=== PATIENT | female | born 1990 | race Caucasian/White ===

== ENCOUNTER 2016-07-25 10:15 | Inpatient (IN) | payer BC ==
--- NOTE | ~2016-07-25 | HP ---
History And Physical [place] [id number] [facility] [place]. [address] NAME: MARITZA BROWN : [birth year] STATUS : ADM Anjel PAT#: [id number] AGE: 26 ADM/REG DATE : 07/25/16 MR#: [id number] REPORT SERV DATE: 07/25/16 DICTATED BY: JR. JACK WILLIAM JOHN DATE: 07/25/16 REPORT STATUS : Draft TRANSCRIBED BY: AHSAN DATE: 07/25/16 DATE OF ADMISSION: 07/25/2016 UROLOGIST: Luigi Azul M.D. GI: Dr. Barreto HISTORY OF PRESENT ILLNESS: This is a 26-year-old white female with history of Crohn disease and kidney stones, who presented to the emergency room with complaint of abdominal pain. The patient was recently admitted to [facility] approximately two weeks ago for nausea and vomiting. Details are unclear at this time. She developed left lower quadrant pain and flank pain about seven days ago and came to the emergency room two days ago. Seven days ago was felt to have a kidney stone, was given pain medicine and followed up with Dr. Azul's office, who gave her a strainer, analgesia, and discharged and sent her home. The patient said she did okay for a few days, then developed worsening epigastric pain, flank pain and eventually came to the emergency room where she was found to have hematuria, acute kidney injury, flank pain, and elevated lipase. PAST MEDICAL HISTORY: Includes: 1. Crohn disease. 2. Chronic abdominal pain. 3. History of pyelonephritis. 4. History of multiple ports, currently in her right chest. 5. History of kidney stones. Followed by Dr. Azul. 6. Status post cholecystectomy. 7. Status post appendectomy. 8. History of multiple stone retrievals. 9. History of bowel resection. Both large and small bowels in the past. HOME MEDICATIONS: Include: 1. Humira 40 mg every other week. 2. Pepto-Bismol 30 mL twice a day as needed. 3. Calcium carbonate 500 mg four times a day as needed. 4. Vitamin B12 1000 mcg intramuscularly every 30 days. 5. Mag-Ox 400 daily. 6. Protonix 40 daily. 7. Thiamine 500 daily. 8. Trazodone 200 at the hour of sleep. ALLERGIES: 1. ZOFRAN WHICH CAUSES ITCHING. 2. HYOSCYAMINE WHICH CAUSES ABDOMINAL SPASMS. 3. REGLAN WHICH CAUSES FACIAL "SEIZURES.". 4. KETOROLAC WHICH CAUSES NAUSEA, VOMITING, AND ITCHING. History And Physical [place] [address] [place]. [address] NAME: MARITZA BROWN : 90 STATUS : ADM Anjel PAT#: [id number] AGE: 26 ADM/REG DATE : 07/25/16 MR#: [id number] REPORT SERV DATE: 07/25/16 DICTATED BY: JR. JACK WILLIAM JOHN DATE: 07/25/16 REPORT STATUS : Draft TRANSCRIBED BY: AHSAN DATE: 07/25/16 FAMILY HISTORY: Mother, living at age 56, healthy. Father, at age 48 of coronary artery disease. Has a half sister who is healthy. SOCIAL HISTORY: Lives in [place] with her mother. She is single. Occasionally uses alcohol. Smokes 1/2 pack per day for 15 years. Denies illicit drugs. She is currently unemployed, trying to get on disability. REVIEW OF SYSTEMS: Negative and all systems reviewed except does admit to occasional palpitations, nausea, vomiting, chronic abdominal pain, blood in her urine, mild dysuria. Had a migraine last week. Of note, denies fevers or chills. PHYSICAL EXAMINATION: VITAL SIGNS: Temperature 98.6, heart rate 115, respiratory rate 16, blood pressure 143/87. GENERAL: The patient is dramatic. She was alert and oriented, in obvious pain. HEENT: Her pupils are equal, round, to reactive to light. Extraocular motions are intact. Sclerae anicteric. Mucosal membranes were moist. NECK: Supple. There was no jugular venous distention, thyromegaly, or bruits. CHEST: Showed a port in the right chest. LUNGS: Clear to auscultation bilaterally without wheezes, there was symmetrical chest rise. CARDIOVASCULAR: S1, S2 without gallop, murmur, or rub. There is a tachycardic regular rhythm. ABDOMEN: There are well-healed surgical scars in the lower abdomen. Diffusely tender without guarding or rebound. EXTREMITIES: Showed no clubbing, cyanosis, or edema. BACK: With left flank pain to percussion and palpation. SKIN: Without rash or other lesions. NEUROLOGIC: Exam showed cranial nerves II through XII are intact. Strength and sensation were full and equal throughout. LABORATORY DATA: White count 15.5, hemoglobin 14.7, platelets 285. Sodium 137, potassium 3, chloride 91, bicarb 38, BUN 8, creatinine 2, glucose 122, total protein 7, albumin 3.6, calcium 12.6, total bilirubin 0.5, alkaline phosphatase 154, SGOT of 25, SGPT of 153. Lipase 2923. Urine HCG was negative. Urinalysis showed a specific gravity of 1.015. There was protein, greater than 182 red cells, 73 white cells. Baseline BUN and creatinine from about one month ago showed a BUN of 10, creatinine 0.9, calcium of 8.2. ASSESSMENT AND PLANS: A 26-year-old female with, 1. Acute kidney injury, most likely secondary to stones or obstruction. Give IV fluids. Analgesia. Check renal ultrasound. Ask Urology to see the patient. Empirically place the patient on Levaquin. 2. Acute pancreatitis, unknown cause. We will check a right upper quadrant ultrasound. Give bowel rest, IV fluids, and analgesia. 3. Crohn disease. As pancreatitis can be related to Crohn disease. We will ask GI to see the patient. She has seen the [facility] in the past. 4. Hypokalemia. Replace per protocol. 5. Hypercalcemia, likely due to volume contraction. We will check ionize and recheck in History And Physical [address] [address] NAME: MARITZA BROWN : [birth year] STATUS : ADM Anjel PAT#: [id number] AGE: 26 ADM/REG DATE : 07/25/16 MR#: [id number] REPORT SERV DATE: 07/25/16 DICTATED BY: JR. JACK WILLIAM JOHN DATE: 07/25/16 REPORT STATUS : Draft TRANSCRIBED BY: MODL DATE: 07/25/16 the morning. 6. Chronic pain syndrome. 7. This patient is observation status. WJF/AHSAN Stephen Jack Jr, MD / [id number] CC: Stephen Jack Jr, MD Keith Weaver, MD
--- NOTE | ~2016-07-25 | IDS ---
Interim Discharge Summary [facility] [address] [place]. [address] NAME: MARITZA BROWN : 89 STATUS : ADM IN PAT#: [id number] AGE: 26 ADM/REG DATE : 07/25/16 MR#: [id number] REPORT SERV DATE: 07/28/16 DICTATED BY: JR. JACK WILLIAM JOHN DATE: 07/28/16 REPORT STATUS : Draft TRANSCRIBED BY: MODDaria DATE: 07/28/16 ADMISSION DATE: 07/25/2016 DISCHARGE DATE: This interim summary covers the time period from 07/25/2016 through 07/28/2016. WORKING DIAGNOSES: 1. Acute kidney injury with a baseline creatinine of 1, current creatinine 1.65. 2. Acute pancreatitis. 3. History of kidney stones. 4. Crohn's disease. 5. Hypokalemia. 6. Chronic pain syndrome. 7. History of bowel resection. OPERATIONS, PROCEDURES, AND TREATMENTS: Include CT of the abdomen and pelvis done 07/26/2016 which showed inflammation of the peripancreatic fat with poor definition of the pancreatic margins consistent with pancreatitis. There were no focal pancreatic abnormalities identified. There was minimal fluid in the cul-de-sac. There was evidence of prior cholecystectomy. CONSULTING PHYSICIANS: Include Dr. Azul of Urology and [facility]. DISCUSSION: The patient is a 26-year-old white female with a history of Crohn's disease with history of multiple prior kidney stones, who presented to the emergency room on 07/25/2016, with a complaint of abdominal pain. The patient has recently been admitted to [facility] as well as [facility]. Most recently, she was at [facility] 2 weeks ago. Details were unclear. After she was discharged from [facility], she developed left lower quadrant flank pain, followed by abdominal pain. She apparently went to Dr. Azul's office for evaluation of a kidney stone. There was a review of an MRI done at [place]. There was no evidence of kidney stones at that time. The patient continued to worsen and was presented to [facility]. Initial laboratory was significant for hypokalemia with a potassium of 3, leukocytosis with a white blood count of 15.5, and acute kidney injury with a BUN of 8 and a creatinine of 2. She was also hypercalcemic with a calcium of 12.6. Finally her lipase was 2923. The patient was admitted for acute pancreatitis and acute kidney injury. 1. Regarding acute pancreatitis, the patient had a CT of the abdomen and pelvis which was consistent with pancreatitis. There was no evidence of necrosis nor phlegmon/pseudocyst at this time. She is treated with bowel rest. She has been given IV fluids, analgesia, and bowel rest. She is not tolerating clear liquid diet at this point. Should the patient continue to not tolerate diet, alternate means of nutrition will need to be addressed. This most likely means a distal feeding tube/nasojejunal tube with tube feedings. 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 2. Regarding the acute kidney injury, her initial creatinine was 2, BUN was normal. The Interim Discharge Summary [address] [place]. [address] NAME: MARITZA BROWN : 90 STATUS : ADM IN PAT#: [id number] AGE: 26 ADM/REG DATE : 07/25/16 MR#: [id number] REPORT SERV DATE: 07/28/16 DICTATED BY: JR. JACK WILLIAM JOHN DATE: 07/28/16 REPORT STATUS : Draft TRANSCRIBED BY: MODDaria DATE: 07/28/16 patient has been aggressively fluid hydrated. She was evaluated by Dr. Azul for kidney stones or obstructive uropathy there has been no evidence of this. With continued aggressive hydration of normal saline 125 mL/hour, her renal function has finally started to improve. Currently her BUN is 10 and creatinine is 1.6. Recommend continued renal monitoring. 3. Regarding the patient's chronic pain syndrome, she is very narcotic tolerant. She is currently on Dilaudid 1 to 2 mg every 2 hours p.r.n. I discussed with the patient that we will be weaning this down as soon as it seems reasonable and that it should not be a daily bargaining session. 4. The remainder of the patient's health problems were stable and were not addressed to this point. For today's exam, please see daily progress note. 5. One of my partners will assume care of this patient in the morning. KYRA/AHSAN Stephen Jack Jr, MD / [id number] CC: Stephen Jack Jr, MD Keith Weaver, MD
--- NOTE | ~2016-07-25 | DS ---
Discharge Summary [facility] [address] [place]. [address] NAME: MARITZA BROWN : 89 STATUS : DIS IN PAT#: [id number] AGE: 26 ADM/REG DATE : 07/25/16 MR#: [id number] REPORT SERV DATE: 08/01/16 DICTATED BY: HOOD ROBERT DATE: 07/31/16 REPORT STATUS : Draft TRANSCRIBED BY: MODL DATE: 07/31/16 ADMISSION DATE: 07/25/2016 DISCHARGE DATE: 07/31/2016 DISCHARGE DIAGNOSES: 1. Acute kidney injury, currently at baseline with a creatinine of 1.1. 2. Acute pancreatitis, currently stable. All lab numbers normal and the patient tolerating some diet. 3. History of kidney stones, currently stable. 4. Crohn disease. 5. Hypokalemia, currently under replacement. 6. Chronic pain syndrome. 7. History of bowel resection in the past. INVASIVE PROCEDURES DONE DURING THIS HOSPITALIZATION: None. CONSULTING PHYSICIANS: Luigi Azul M.D. of Urology; Rafiq Lizarraga MD of Nephrology; and [facility]. BRIEF HISTORY OF PRESENT ILLNESS: The patient is a 26-year-old white female with a history of Crohn disease, prior kidney stones, who presented to the emergency room on 07/25/2016 with complaints of abdominal pain, and on the CT scan, found to have pancreatitis and lab work showed elevated creatinine, so she was admitted. For detailed history and physical exam, please see note dictated by Dr. Stephen Jack on 07/25/2016. HOSPITAL COURSE: After being admitted to the hospital, this patient was cared for by Dr. Jack. Please refer to interim summary dictated by Dr. Jack on 07/28/2016. I took over this patient's care on 07/29/2016. This patient was doing fairly well. She was still having some nausea. We did advance her diet to GI soft. She had been ambulating and going out to smoke. She continued to required large doses of pain medications, this was discussed with the patient and we started to wean off her IV Dilaudid. We increased her Percocet. There was no evidence of any infection, so her Levaquin was discontinued. All lab work as far as liver function studies remained stable, and her lipase was normal as well. Her electrolytes have been the bigger issue with the low phosphorus of 1.1, magnesium of 1.5, and a potassium of 2.8, these are being replaced through IV route. Today, she says that she feels well enough that she wants to go home and try to recover in the outpatient setting. DISCHARGE DISPOSITION: Home. DISCHARGE ACTIVITY: As tolerated. DISCHARGE DIET: GI soft, low-residue diet. DISCHARGE MEDICATIONS: Percocet 7.5/325 one tablet every six hours p.r.n. for pain, #15, without refills; Phenergan 25 mg p.o. with q.6 hours p.r.n. for nausea, #15, without refills; vitamin B12 1000 mcg IM once every 30 days; magnesium oxide 400 mg twice daily; Discharge Summary [address] [address] NAME: MARITZA BROWN : 90 STATUS : DIS IN PAT#: [id number] AGE: 26 ADM/REG DATE : 07/25/16 MR#: [id number] REPORT SERV DATE: 08/01/16 DICTATED BY: HOOD ROBERT DATE: 07/31/16 REPORT STATUS : Draft TRANSCRIBED BY: MODL DATE: 07/31/16 Protonix 40 mg twice daily; vitamin B1 500 mg once daily; trazodone 200 mg at bedtime p.r.n. for sleep; Tums 500 mg four times daily; Pepto-Bismol 30 mL p.o. p.r.n.; and Humira 40 mg subcutaneously once weekly. DISCHARGE FOLLOWUP: With Dr. Levy, her primary care physician, as scheduled previously. More than 30 minutes spent planning this patient's discharge, reconciling medications, writing prescriptions, discussing hospital care, and follow up with the patient at the bedside. BOB/AHSAN Hood Robert M.D. / [id number] CC: Zaid Reyes MD William John Fritsch, Jr, MD
--- NOTE | ~2016-07-25 | CN ---
Consultation Report [facility] [address] [place]. [address] NAME: MARITZA BROWN : 89 STATUS : ADM IN PAT#: [id number] AGE: 26 ADM/REG DATE : 07/25/16 MR#: [id number] REPORT SERV DATE: 07/28/16 DICTATED BY: MELYSSA LUCAS DATE: 07/28/16 REPORT STATUS : Draft TRANSCRIBED BY: MODDaria DATE: 07/28/16 DATE OF CONSULTATION: REASON FOR CONSULTATION: Acute kidney injury. HISTORY OF PRESENT ILLNESS: This is a fairly pleasant 26-year-old female patient who presented to [facility] on 07/25/2016 complaining of abdominal pain. She has a history of Crohn's disease and kidney stones and was admitted in June for further evaluation and workup with noted acute kidney injury. It was felt that she might likely have renal stones and occlusion resulting in her acute kidney injury. She did undergo CT of the abdomen and pelvis without contrast that showed inflammation of the peripancreatic fat with poor definition of pancreatic margins consistent with pancreatitis. No focal pancreatic abnormalities were identified. Minimal flow to the posterior cul-de-sac, cholecystectomy, otherwise negative noncontrast CT of the abdomen and pelvis. On the CT, there was no evidence of hydronephrosis nor significant renal calcifications or gross renal disease. Baseline creatinine appears to be sub 1.0 as late as June 2016. She was admitted on 07/25/2016 with a creatinine of 2.02. Creatinine max had shown at 2.34 and has deescalated consecutive days and is now at 1.65. We are consulted for evaluation by Dr. Jack for this acute kidney injury today. The patient is awake and alert, lying in her stretcher this afternoon. No complaints of chest pain. No nausea, vomiting, or diarrhea currently, but reports difficulty with appetite over the last several weeks and decreased p.o. intake. PAST MEDICAL HISTORY: Positive for Crohn's disease; chronic abdominal pain; history of pyelonephritis; history of multiple ports, currently with the port located in her right chest; history of kidney stones, followed by Dr. Luigi Azul; status post cholecystectomy; status post appendectomy; history of multiple stone retrievals; history of bowel resection, both large and small in the past. HOME MEDICATIONS: Include Humira 40 mg p.o. every other week, Pepto-Bismol 30 mL twice a day as needed, calcium carbonate 500 mg four times a day as needed, vitamin B12 of 1000 mcg IM every 30 days, Mag-Ox 400 mg daily, Protonix 40 daily, thiamine 500 daily, trazodone 200 mg p.o. q.h.s. ALLERGIES: SHE LISTS ALLERGIES TO ZOFRAN, HYOSCYAMINE, REGLAN, AND KETOROLAC. SOCIAL HISTORY: She lives locally in [place] with her family. She is single and occasionally use of alcohol. Smokes one-half pack per day and has done so for approximately 15 years. Denies illicit drug use. Currently, unemployed and has been attempting to receive disability. REVIEW OF SYSTEMS: Completed. Please see HPI for pertinent details. PHYSICAL EXAMINATION: Consultation Report [address] [place]. [address] NAME: MARITZA BROWN : 89 STATUS : ADM IN [facility]#: [id number] AGE: 26 ADM/REG DATE : 07/25/16 MR#: [id number] REPORT SERV DATE: 07/28/16 DICTATED BY: MELYSSA LUCAS DATE: 07/28/16 REPORT STATUS : Draft TRANSCRIBED BY: AHSAN DATE: 07/28/16 VITAL SIGNS: Blood pressure 159/54, temperature at 98.4, 97% on room air, heart rate at 88 beats per minute and regular. GENERAL: She is awake, alert, and oriented x3, in no acute distress, lying in bed during evaluation. HEENT: She is normocephalic and atraumatic. Normal ocular movements. No scleral icterus. Conjunctival pallor is appreciated. NECK: Without thyromegaly. No JVD or mass. CHEST: Shows positive S1 and S2. No rubs or gallops. She does have a port that is accessed in her chest wall and as listed above in her recent medical history. GI: Shows positive bowel sounds in all four quadrants. No appreciable mass or tenderness. LUNGS: Diminished, but essentially clear to auscultation throughout with normal expansion and effort bilaterally. No adventitious wheezes or rhonchi. NEUROLOGIC: She appears to be grossly intact. Nonfocal. SKIN: Warm, dry, and intact on the visualized surfaces. No rashes or ecchymosis. : Deferred. PERTINENT LABORATORIES AND IMAGING TO THIS EVALUATION: CT of the abdomen and pelvis without contrast completed during admission as listed above. Most recent creatinine at 1.65 with a sodium of 141, potassium 3.6, chloride 107, CO2 of 26, BUN 10. Reflected GFR at 42 mL/minutes. Glucose of 88, calcium 7.7. Albumin 2.3, ALT and AST 20 and 14 respectively, and lipase of 303. White blood cell count at 10.1, hemoglobin 10.3, hematocrit 31.0, platelets are 163. IMPRESSION AND PLAN: Acute kidney injury with likely source at this point appearing to be volume contraction with decreased p.o. intake and difficulty with nausea chronically over the past several months according to the patient. She has had a noncontrast CT which identified no abnormality in regard to her renal anatomy. No masses. No hydronephrosis. It showed no evidence of renal stones. Her creatinine has responded appropriately over the last two to three days with a downtrend now at 1.65, baseline of sub 1.0. We would continue her current IV fluids. We will repeat her UA and check urine eosinophils as well. We also quantify urinary protein excretion if proteinuria is noted on urinalysis. I see no evidence that would prompt me to undergo a renal ultrasound at this point. She is a smoker and has done so for approximately 15 years. May also consider early vascular disease with her smoking history. As part of the continuum, if she continues to show a downtrend in her creatinine, we will not undertake renal Doppler at this time. We would avoid CHADWICK inhibitors as well as ARB use and avoid nonsteroidal medications. No contrasted studies and lest an apparent medical need outweighs possible risk at this point. Further modification in treatment plan may be made based on clinical presentation and the patient's laboratory results. Further consultation with Renal attending. We appreciate consultation. We are glad to follow. DICTATED BY: Sharan Torres NP Consultation Report [address] [place]. [address] NAME: MARITZA BROWN : 89 STATUS : ADM IN PAT#: [id number] AGE: 26 ADM/REG DATE : 07/25/16 MR#: [id number] REPORT SERV DATE: 07/28/16 DICTATED BY: MELYSSA LUCAS DATE: 07/28/16 REPORT STATUS : Draft TRANSCRIBED BY: MODL DATE: 07/28/16 /AHSAN Melyssa Lucas MD / [id number] CC: Stephen Jack Jr, MD Keith Weaver, MD
--- NOTE | ~2016-07-25 | CN ---
Consultation Report [facility] [address] [place]. [address] NAME: MARITZA BROWN : 89 STATUS : ADM Anjel PAT#: [id number] AGE: 26 ADM/REG DATE : 07/25/16 MR#: [id number] REPORT SERV DATE: 07/26/16 DICTATED BY: JAQUAN DE LA CRUZ DATE: 07/26/16 REPORT STATUS : Draft TRANSCRIBED BY: MODL DATE: 07/26/16 GI CONSULTATION DATE OF CONSULTATION: 07/26/2016 REASON FOR CONSULTATION: Evaluation and management of abdominal pain, elevated lipase in a patient with history of Crohn's. HISTORY OF PRESENT ILLNESS: Ms. Brown is a 26-year-old female patient, whom we have seen in 08/2013 as well as 11/2015 at [facility]. She is followed by Dr. Barreto, GI physician at [place] for a history of Crohn's disease. She presents to [facility] on 07/25 with a chief complaint of abdominal pain. She states that her pain began really on Sunday with nausea and left upper quadrant and left flank pain, which was unrelenting. She states that she did have associated hematuria. She had nausea and she states fever up to 100 degrees. By review of records, it looks like she was here in the emergency room on 07/19. She had a hospitalization in the early part of June and was seen by Dr. Solano on 07/01 and then was subsequently discharged. She states that she felt initially her pain was secondary to kidney stones as she has a longstanding history of chronic nephrolithiasis, as well as was having the hematuria. She states that in terms of her Crohn's disease, she feels like that it is under control at this point. She states that she was on Remicade up until 01/2016 when she lost her insurance and had to come off Remicade. She has been instructed by Dr. Barreto to begin Humira. She has her medication for induction, but is yet to do so. I have discussed with the patient and the mother not to start Humira at this time. She has not had any imaging since admission. She states that she cannot undergo a CT scan secondary to her having had "49" in her lifetime and states that she was told unless it was emergency not to have another CT scan. Presently, she is refusing to go for an ultrasound secondary to uncontrolled pain. She states that her pain is a 10/10, left upper quadrant, epigastric and left flank pain. Her admission lipase was 2923, normal AST and ALT. Her white count was elevated at 15, presently it is 10.6. She has a low potassium at 2.8. PAST MEDICAL HISTORY: Positive for Crohn's disease, diagnosed at the age of 13, previously on Remicade, last infusion was 01/2016; she is followed by Dr. Barreto at [place]; she is to start Humira induction, but is yet to do so. She has a history of chronic nonobstructing nephrolithiasis, urinary tract infection, chronic abdominal pain with history of previous narcotic dependency and C diff, depression, anxiety, HPV, pyelonephritis. PAST SURGICAL HISTORY: Includes appendectomy, cholecystectomy, partial small-bowel resection as well as colon resection secondary to her Crohn's disease, lithotripsy, tonsillectomy, Port-A-Cath placement. SOCIAL HISTORY: She is unemployed and lives with her parents. She denies any alcohol. Positive tobacco. Negative for illicits. Consultation Report [address] [address] NAME: MARITZA BROWN : 89 STATUS : ADM Anjel PAT#: [id number] AGE: 26 ADM/REG DATE : 07/25/16 MR#: [id number] REPORT SERV DATE: 07/26/16 DICTATED BY: JAQUAN DE LA CRUZ DATE: 07/26/16 REPORT STATUS : Draft TRANSCRIBED BY: AHSAN DATE: 07/26/16 FAMILY HISTORY: Negative from a GI standpoint. ALLERGIES: LISTED TO HYOSCYAMINE, REGLAN, TORADOL, ZOFRAN. HOME MEDICATIONS: Humira, which is yet to be started; Pepto-Bismol; Tums; vitamin B12; magnesium oxide; Protonix; vitamin B1; and Desyrel. REVIEW OF SYSTEMS: A 10-point review of systems was obtained with pertinent positives being addressed in the history of present illness. PERTINENT LABORATORY DATA: Sodium 141, potassium 2.8, BUN 13, creatinine 2.21. White count 10.6, hemoglobin 12.4, hematocrit 38, platelet count 197. Total bilirubin 0.5, alkaline phosphatase 154, ALT 53, AST 25, lipase 2923. No abdominal imaging, is yet to be taken. PHYSICAL EXAMINATION: VITAL SIGNS: Temperature is 98.9, pulse 107, respirations 24, and blood pressure 119/71. NEURO: Reveals an alert female, resting in bed with no focal deficits. GENERAL: Cooperative. She is in distress secondary to abdominal pain. She is tearful. She is oriented x3. HEAD, EARS, EYES, NOSE, AND THROAT: Anicteric. Pupils equal, round, reactive to light and accommodation. Normocephalic and atraumatic. Noted poor halfway. NECK: No JVD. No palpable nodes. LUNGS: Diminished with normal respiratory effort exhibited. Equal expansion. CARDIOVASCULAR SYSTEM: Regular rate and rhythm, but tachycardic. ABDOMEN: Soft and nondistended, but tender to palpation in the left upper epigastric region. Hypoactive bowel sounds. No rebound or guarding elicited on exam. No peritoneal signs. EXTREMITIES: No edema. Normal distal pulses. SKIN: Warm, dry, and intact. ASSESSMENT: 1. Abdominal pain, left upper quadrant, epigastric and left flank. 2. Elevated lipase, questionable pancreatitis. 3. Nausea. 4. Crohn's disease, previously on Remicade, last dose in 01/2016, was to begin Humira. 5. Acute kidney injury, hematuria, history of kidney stones. 6. Hypokalemia. 7. Chronic pain. PLAN: 1. N.P.O. 2. Check labs. We will check an IgG4 level as well as lipid profile. 3. Hold her Humira. 4. Need either ultrasound versus MRCP versus MRI. The patient states she cannot undergo a Consultation Report [address] [address] NAME: MARITZA BROWN : 89 STATUS : ADM Anjel PAT#: [id number] AGE: 26 ADM/REG DATE : 07/25/16 MR#: [id number] REPORT SERV DATE: 07/26/16 DICTATED BY: JAQUAN DE LA CRUZ DATE: 07/26/16 REPORT STATUS : Draft TRANSCRIBED BY: AHSAN DATE: 07/26/16 CT scan unless an emergent situation. We will continue her IV fluids and pain and nausea control. ESTHER/AHSAN Esbon NIA Sorensen / [id number] CC: Stephen Jack Jr, MD Keith Weaver, MD
[~2016-07-25 10:15] MED LIST: ABILIFY10 PO; ABILIFY2 PO; AMBIEN CR12.5 MG PO; AMPI500 PO; ATV1 PO; AVINZA90 PO; BENTYL20 PO; BUSPAR15 M1 PO; BYSTOLIC5 MG PO; EFFEXOR XR150 MG PO; FLAG500TAB PO; IRON325 MG PO; L40 PO; LEVAQUIN750 MG PO; LUNESTA3 MG PO; MAGOX4 PO; OPANA ER40 MG PO; OPANA10 MG PO; OS500 PO; P20 PO; PCET PO; PENTASA500 MG PO; PERCOCET1 TA2 PO; PERCOCET1 TA4 PO; PERCOCET1 TA5 PO; PHENERGAN TOP; PHENERGAN25 MG/ML PO; POT CITRATE OR; PR25 PO; PR25 T; PREV30 PO; PROTONIX PO; PROZ10 PO; PROZAC PO; PROZAC20 MG OR; PROZAC40 MG PO; REMICADE IV; SEASONALE PO; SEASONIQUE OR; SEASONIQUE PO; TRAZ100 PO; TRAZODONE300 MG PO; UROCIT-K 10 OR; UROCIT-K 10 PO; VITAMIN B-1 PO; XANAX2 MG PO; ZANAFLEX 4 MG TA4 MG PO; [UNRECOGNIZED DRUG - OTHER]
[2016-07-25 10:55] LABS: BASOPHILS 0.1 %; BASOPHILS ABSOLUTE 0.02 10/3/uL (0.0-0.16); EOSINOPHILS 0.1 %; EOSINOPHILS ABSOLUTE 0.02 10/3/uL (0.0-0.53); ER CBC TAT 0 Hrs 03 Mins; HEMATOCRIT 42.9 % (36.0-48.0); HEMOGLOBIN 14.7 g/dL (12.0-16.0); IMMATURE GRANULOCYTES 0.2 %; IMMATURE GRANULOCYTES ABSOLUTE 0.03 10/3/uL (0.0-0.11); LYMPHOCYTES 4.2 %; LYMPHOCYTES ABSOLUTE 0.65 10/3/uL (0.67-4.30); MANUAL DIFF NO %; MEAN CORPUS HGB CONC 34.3 g/dL (32.0-36.0); MEAN CORPUSCULAR HEMOGLOB 33.4 pg (26.0-34.0); MEAN CORPUSCULAR VOLUME 97.5 fL (80-100); MEAN PLATELET VOLUME 10.8 fL (9.2-13.0); MONOCYTES 5.5 %; MONOCYTES ABSOLUTE 0.86 10/3/uL (0.21-1.20); NEUTROPHILS 89.9 %; NEUTROPHILS ABSOLUTE 13.94 10/3/uL (2.02-8.40); PLATELET COUNT 285 10/3/uL (150-400); RBC DISTRIBUTION WIDTH 13.9 % (12.0-16.0); WHITE BLOOD CELLS 15.5 10/3/uL (4.5-10.5)
[2016-07-25 11:10] LABS: A/G RATIO 1.1 (0.7-1.9); ALBUMIN 3.6 G/DL (3.5-5.0); ALKALINE PHOSPHATASE 154 U/L (45-117); BUN (BLOOD UREA NITROGEN) 8 MG/DL (6-23); CALCIUM, SERUM 12.6 MG/DL (8.5-10.4); CHLORIDE, SERUM 91 MMOL/L (96-112); CO2 (CARBON DIOXIDE) 38 MMOL/L (24-34); CREATININE 2.02 MG/DL (0.55-1.02); GFR AFRICAN AMERICAN 38 ML/MIN (>=60); GFR NON AFRICAN AMERICAN 33 ML/MIN (>=60); GLOBULIN 3.4 G/DL (2.5-4.1); GLUCOSE, SERUM 122 MG/DL (60-99); SGOT(AST) 25 U/L (5-40); SGPT(ALT) 53 U/L (5-65); SODIUM, SERUM 137 MMOL/L (135-148); TOTAL BILIRUBIN 0.5 MG/DL (0-1.2)
[2016-07-25 12:34] LABS: ASCORBIC ACID (UR NOT ORDER) NEG (NEG); BILIRUBIN, URINE NEGATIVE (NEG); ER URINALYSIS TAT 0 Hrs 15 Mins; KETONE, URINE TRACE MG/DL (NEG); LEUKOCYTE ESTERASE(NOT OR LARGE (NEG); NITRITE (URINE) NEG (NEG); WBC (NOT ORDERED) (RFLEX) 73 (0-5)
[2016-07-25] MEDS ORDERED: PROTONIX PO (12:56)
[2016-07-25] MEDS ORDERED: TRAZ100 PO (12:57)
[2016-07-25] MEDS ORDERED: MAGOX4 PO (13:00)
[2016-07-25] MEDS ORDERED: VITAMIN B-1500 MG PO (13:00)
[2016-07-25] MEDS ORDERED: HUMIRA PEN SC (13:01)
[2016-07-25] MEDS ORDERED: TUMSROLL PO (13:01)
[2016-07-25] MEDS ORDERED: B121000P IM (13:01)
[2016-07-25] MEDS ORDERED: PEPTO BISMOL LIQ1 ML PO (13:01)
[2016-07-26 04:50] LABS: BASOPHILS 0.1 %; BASOPHILS ABSOLUTE 0.01 10/3/uL (0.0-0.16); EOSINOPHILS 1.3 %; EOSINOPHILS ABSOLUTE 0.14 10/3/uL (0.0-0.53); HEMOGLOBIN 12.4 g/dL (12.0-16.0); IMMATURE GRANULOCYTES 0.2 %; IMMATURE GRANULOCYTES ABSOLUTE 0.02 10/3/uL (0.0-0.11); LYMPHOCYTES ABSOLUTE 1.69 10/3/uL (0.67-4.30); MEAN CORPUS HGB CONC 32.6 g/dL (32.0-36.0); MEAN CORPUSCULAR HEMOGLOB 33.5 pg (26.0-34.0); MEAN PLATELET VOLUME 10.7 fL (9.2-13.0); MONOCYTES 5.4 %; MONOCYTES ABSOLUTE 0.57 10/3/uL (0.21-1.20); NEUTROPHILS ABSOLUTE 8.14 10/3/uL (2.02-8.40); RBC DISTRIBUTION WIDTH 13.9 % (12.0-16.0); WHITE BLOOD CELLS 10.6 10/3/uL (4.5-10.5)
[2016-07-26 04:51] LABS: MANUAL DIFF NO %; MEAN CORPUSCULAR VOLUME 102.7 fL (80-100); PLATELET COUNT 197 10/3/uL (150-400)
[2016-07-26 05:02] LABS: CHLORIDE, SERUM 98 MMOL/L (96-112); CO2 (CARBON DIOXIDE) 39 MMOL/L (24-34); CREATININE 2.21 MG/DL (0.55-1.02); GFR AFRICAN AMERICAN 35 ML/MIN (>=60); GFR NON AFRICAN AMERICAN 30 ML/MIN (>=60); POTASSIUM, SERUM 2.8 MMOL/L (3.5-5.3); SODIUM, SERUM 141 MMOL/L (135-148)
[2016-07-26 05:03] LABS: BUN (BLOOD UREA NITROGEN) 13 MG/DL (6-23); CALCIUM, SERUM 9.7 MG/DL (8.5-10.4); GLUCOSE, SERUM 85 MG/DL (60-99)
[2016-07-26 13:46] LABS: BUN (BLOOD UREA NITROGEN) 13 MG/DL (6-23); CALCIUM, SERUM 9.3 MG/DL (8.5-10.4); CHLORIDE, SERUM 102 MMOL/L (96-112); CREATININE 2.34 MG/DL (0.55-1.02); GFR AFRICAN AMERICAN 32 ML/MIN (>=60); GFR NON AFRICAN AMERICAN 28 ML/MIN (>=60); GLUCOSE, SERUM 77 MG/DL (60-99); SODIUM, SERUM 141 MMOL/L (135-148)
[2016-07-26 13:48] LABS: CO2 (CARBON DIOXIDE) 33 MMOL/L (24-34); POTASSIUM, SERUM 3.5 MMOL/L (3.5-5.3)
[2016-07-27 04:45] LABS: BUN (BLOOD UREA NITROGEN) 12 MG/DL (6-23); CALCIUM, SERUM 8.6 MG/DL (8.5-10.4); CHLORIDE, SERUM 102 MMOL/L (96-112); CO2 (CARBON DIOXIDE) 29 MMOL/L (24-34); CREATININE 2.25 MG/DL (0.55-1.02); DIRECT BILIRUBIN 0.2 MG/DL (0.0-0.4); GFR AFRICAN AMERICAN 34 ML/MIN (>=60); GFR NON AFRICAN AMERICAN 29 ML/MIN (>=60); GLUCOSE, SERUM 80 MG/DL (60-99); IMMUNOGLOBULIN G 576 MG/DL (673-1464); INDIRECT BILIRUBIN(NOT ORDER) 0.4 MG/DL (0.1-0.9); SGOT(AST) 17 U/L (5-40); SGPT(ALT) 28 U/L (5-65); SODIUM, SERUM 139 MMOL/L (135-148); TOTAL BILIRUBIN 0.6 MG/DL (0-1.2); TRIGLYCERIDE 101 MG/DL (< 150)
[2016-07-27 04:48] LABS: ALBUMIN 2.6 G/DL (3.5-5.0); ALKALINE PHOSPHATASE 97 U/L (45-117); CHOLESTEROL 102 MG/DL (< 200); HDL CHOLESTEROL 50 MG/DL (> 49); LDL CHOLESTEROL 32 MG/DL (< 130); NON-HDL CHOLESTEROL 52 MG/DL (< 160); TOTAL PROTEIN 5.5 G/DL (6.0-8.5)
[2016-07-27 15:00] LABS: BUN (BLOOD UREA NITROGEN) 11 MG/DL (6-23); CALCIUM, SERUM 7.7 MG/DL (8.5-10.4); CHLORIDE, SERUM 104 MMOL/L (96-112); CO2 (CARBON DIOXIDE) 28 MMOL/L (24-34); CREATININE 1.92 MG/DL (0.55-1.02); GFR AFRICAN AMERICAN 41 ML/MIN (>=60); GFR NON AFRICAN AMERICAN 35 ML/MIN (>=60); GLUCOSE, SERUM 85 MG/DL (60-99); POTASSIUM, SERUM 3.2 MMOL/L (3.5-5.3); SODIUM, SERUM 142 MMOL/L (135-148)
[2016-07-28 04:49] LABS: POTASSIUM, SERUM 3.6 MMOL/L (3.5-5.3); SODIUM, SERUM 141 MMOL/L (135-148)
[2016-07-28 05:05] LABS: BASOPHILS 0.1 %; BASOPHILS ABSOLUTE 0.01 10/3/uL (0.0-0.16); EOSINOPHILS 3.3 %; EOSINOPHILS ABSOLUTE 0.33 10/3/uL (0.0-0.53); HEMOGLOBIN 10.3 g/dL (12.0-16.0); IMMATURE GRANULOCYTES 0.3 %; IMMATURE GRANULOCYTES ABSOLUTE 0.03 10/3/uL (0.0-0.11); LYMPHOCYTES 19.4 %; LYMPHOCYTES ABSOLUTE 1.96 10/3/uL (0.67-4.30); MANUAL DIFF NO %; MEAN CORPUS HGB CONC 33.2 g/dL (32.0-36.0); MEAN CORPUSCULAR HEMOGLOB 33.9 pg (26.0-34.0); MEAN PLATELET VOLUME 10.9 fL (9.2-13.0); MONOCYTES 7.3 %; MONOCYTES ABSOLUTE 0.74 10/3/uL (0.21-1.20); NEUTROPHILS 69.6 %; NEUTROPHILS ABSOLUTE 7.01 10/3/uL (2.02-8.40); PLATELET COUNT 163 10/3/uL (150-400); RBC DISTRIBUTION WIDTH 13.3 % (12.0-16.0); RED CELL COUNT 3.04 10/6/uL (4.0-5.6); WHITE BLOOD CELLS 10.1 10/3/uL (4.5-10.5)
[2016-07-28 05:16] LABS: A/G RATIO 0.8 (0.7-1.9); ALBUMIN 2.3 G/DL (3.5-5.0); BUN (BLOOD UREA NITROGEN) 10 MG/DL (6-23); CALCIUM, SERUM 7.7 MG/DL (8.5-10.4); CHLORIDE, SERUM 107 MMOL/L (96-112); CO2 (CARBON DIOXIDE) 26 MMOL/L (24-34); CREATININE 1.65 MG/DL (0.55-1.02); GFR AFRICAN AMERICAN 49 ML/MIN (>=60); GFR NON AFRICAN AMERICAN 42 ML/MIN (>=60); GLOBULIN 2.9 G/DL (2.5-4.1); GLUCOSE, SERUM 88 MG/DL (60-99); SGOT(AST) 14 U/L (5-40); SGPT(ALT) 20 U/L (5-65); TOTAL BILIRUBIN 0.3 MG/DL (0-1.2); TOTAL PROTEIN 5.2 G/DL (6.0-8.5)
[2016-07-28 05:23] LABS: ALKALINE PHOSPHATASE 84 U/L (45-117)
[2016-07-29 09:57] LABS: BASOPHILS 0.2 %; BASOPHILS ABSOLUTE 0.02 10/3/uL (0.0-0.16); EOSINOPHILS 2.7 %; EOSINOPHILS ABSOLUTE 0.27 10/3/uL (0.0-0.53); IMMATURE GRANULOCYTES 0.2 %; IMMATURE GRANULOCYTES ABSOLUTE 0.02 10/3/uL (0.0-0.11); MEAN CORPUS HGB CONC 32.8 g/dL (32.0-36.0); MEAN CORPUSCULAR HEMOGLOB 33.1 pg (26.0-34.0); MEAN CORPUSCULAR VOLUME 100.8 fL (80-100); MEAN PLATELET VOLUME 11.3 fL (9.2-13.0); MONOCYTES 5.2 %; MONOCYTES ABSOLUTE 0.52 10/3/uL (0.21-1.20); NEUTROPHILS 69.7 %; NEUTROPHILS ABSOLUTE 6.98 10/3/uL (2.02-8.40); RBC DISTRIBUTION WIDTH 13.4 % (12.0-16.0)
[2016-07-29 10:04] LABS: HEMATOCRIT 39.6 % (36.0-48.0); PLATELET COUNT 217 10/3/uL (150-400); RED CELL COUNT 3.93 10/6/uL (4.0-5.6)
[2016-07-29 10:05] LABS: MANUAL DIFF NO %
[2016-07-29 10:20] LABS: BUN (BLOOD UREA NITROGEN) 8 MG/DL (6-23); CALCIUM, SERUM 8.6 MG/DL (8.5-10.4); CHLORIDE, SERUM 103 MMOL/L (96-112); CO2 (CARBON DIOXIDE) 25 MMOL/L (24-34); CREATININE 1.38 MG/DL (0.55-1.02); GFR AFRICAN AMERICAN 61 ML/MIN (>=60); GFR NON AFRICAN AMERICAN 53 ML/MIN (>=60); POTASSIUM, SERUM 3.5 MMOL/L (3.5-5.3); SGOT(AST) 17 U/L (5-40); SGPT(ALT) 25 U/L (5-65); SODIUM, SERUM 141 MMOL/L (135-148); TOTAL BILIRUBIN 0.4 MG/DL (0-1.2)
[2016-07-29 10:26] LABS: A/G RATIO 0.8 (0.7-1.9); ALBUMIN 3.1 G/DL (3.5-5.0); ALKALINE PHOSPHATASE 108 U/L (45-117); GLOBULIN 4.1 G/DL (2.5-4.1); GLUCOSE, SERUM 64 MG/DL (60-99); PHOSPHORUS, SERUM 1.9 MG/DL (2.5-4.5); TOTAL PROTEIN 7.2 G/DL (6.0-8.5)
[2016-07-29 12:20] LABS: ASCORBIC ACID (UR NOT ORDER) NEG (NEG); BILIRUBIN, URINE NEGATIVE (NEG); KETONE, URINE TRACE MG/DL (NEG); LEUKOCYTE ESTERASE(NOT OR NEG (NEG); WBC (NOT ORDERED) (RFLEX) 3 (0-5)
[2016-07-29 21:17] LABS: IMMUNOGLOBULIN G SUBCLASS 1 405 mg/dL (405-1011); IMMUNOGLOBULIN G SUBCLASS 2 162 mg/dL (169-786); IMMUNOGLOBULIN G SUBCLASS 3 22 mg/dL (11-85); IMMUNOGLOBULIN G SUBCLASS 4 27 mg/dL (3-201)
[2016-07-30 06:53] LABS: BASOPHILS 0.2 %; BASOPHILS ABSOLUTE 0.01 10/3/uL (0.0-0.16); EOSINOPHILS 3.5 %; EOSINOPHILS ABSOLUTE 0.19 10/3/uL (0.0-0.53); HEMATOCRIT 28.6 % (36.0-48.0); HEMOGLOBIN 9.8 g/dL (12.0-16.0); IMMATURE GRANULOCYTES 0.2 %; IMMATURE GRANULOCYTES ABSOLUTE 0.01 10/3/uL (0.0-0.11); LYMPHOCYTES 26.7 %; LYMPHOCYTES ABSOLUTE 1.45 10/3/uL (0.67-4.30); MANUAL DIFF NO %; MEAN CORPUS HGB CONC 34.3 g/dL (32.0-36.0); MEAN CORPUSCULAR HEMOGLOB 34.3 pg (26.0-34.0); MEAN PLATELET VOLUME 10.7 fL (9.2-13.0); MONOCYTES 7.9 %; MONOCYTES ABSOLUTE 0.43 10/3/uL (0.21-1.20); NEUTROPHILS 61.5 %; NEUTROPHILS ABSOLUTE 3.35 10/3/uL (2.02-8.40); PLATELET COUNT 162 10/3/uL (150-400); RBC DISTRIBUTION WIDTH 13.5 % (12.0-16.0); RED CELL COUNT 2.86 10/6/uL (4.0-5.6); WHITE BLOOD CELLS 5.4 10/3/uL (4.5-10.5)
[2016-07-30 07:03] LABS: BUN (BLOOD UREA NITROGEN) 5 MG/DL (6-23); CHLORIDE, SERUM 104 MMOL/L (96-112); CO2 (CARBON DIOXIDE) 25 MMOL/L (24-34); CREATININE 0.94 MG/DL (0.55-1.02); GFR AFRICAN AMERICAN 97 ML/MIN (>=60); GFR NON AFRICAN AMERICAN 84 ML/MIN (>=60); GLUCOSE, SERUM 72 MG/DL (60-99); PHOSPHORUS, SERUM 2.3 MG/DL (2.5-4.5); SODIUM, SERUM 140 MMOL/L (135-148)
[2016-07-30 07:04] LABS: ALBUMIN 2.3 G/DL (3.5-5.0); CALCIUM, SERUM 7.2 MG/DL (8.5-10.4); POTASSIUM, SERUM 2.9 MMOL/L (3.5-5.3)
[2016-07-31 04:01] LABS: ALBUMIN 2.2 G/DL (3.5-5.0); BUN (BLOOD UREA NITROGEN) 4 MG/DL (6-23); CALCIUM, SERUM 7.4 MG/DL (8.5-10.4); CHLORIDE, SERUM 105 MMOL/L (96-112); CO2 (CARBON DIOXIDE) 29 MMOL/L (24-34); CREATININE 1.11 MG/DL (0.55-1.02); GFR AFRICAN AMERICAN 79 ML/MIN (>=60); GFR NON AFRICAN AMERICAN 68 ML/MIN (>=60); SODIUM, SERUM 144 MMOL/L (135-148)
[2016-07-31 04:06] LABS: GLUCOSE, SERUM 98 MG/DL (60-99); PHOSPHORUS, SERUM 1.1 MG/DL (2.5-4.5); POTASSIUM, SERUM 2.8 MMOL/L (3.5-5.3)
[2016-07-31] MEDS ORDERED: PERCOCET 7.5/321 TAB PO (15:49)
[2016-07-31] MEDS ORDERED: PR25 PO (15:50)
== END 2016-07-31 16:36 | disposition home or self-care (01) | DRG 682 ==
LOC: ER 10:15 → CDU1 13:11 → 6NO 07-29 00:14
PROVIDERS: Internal Medicine; Internal Medicine Nephrology; Nurse Practitioner Family; Physician Assistant; Registered Nurse
DX: N17.9 Acute kidney failure, unspecified (principal); K85.90 Acute pancreatitis without necrosis or infection, unspecified; K50.90 Crohn's disease, unspecified, without complications; E83.52 Hypercalcemia; F11.20 Opioid dependence, uncomplicated; Z87.442 Personal history of urinary calculi; E87.6 Hypokalemia; G89.4 Chronic pain syndrome; Z90.49 Acquired absence of other specified parts of digestive tract
CPT/HCPCS: 71010; 74176; 80048; 80053; 80061; 80069; 80076; 81001; 82272; 82330; 82570; 82784; 82787; 82787-59; 83690; 83735; 84132; 84156; 84300; 84540; 84703; 85025; 87045; 87046; 87046-59; 87086; 87177; 87209; 87493; 87493-59; 87899; 87899-59; 89055; 89125; 89190; 96374; 96375; 96376; 99285; A9270-GY; J1170; J1956; J2550; J2997